=== PATIENT | female | born 1965 | race Caucasian/White ===

== ENCOUNTER 2019-07-26 13:10 | Day surgery (SDC) | payer OTHER, SELFPAY ==
[2019-07-26] VITALS (7 sets, daily range): BP systolic 99–124; BP diastolic 63–81; PULSE 58–80; RESP 10–16; TEMP 36.4–37.4; O2SAT 99–100; BMI 47.1
[2019-07-26] MEDS: SODIUM CHLORIDE 0.9% 1,000 ML 200 ML IV (14:07)
--- NOTE | 2019-07-26 14:49 | P.HP_ITS ---
History of Present Illness History of Present Illness Date Patient Seen: 07/26/19 Time Patient Seen: 14:49 Chief complaint: [id number] Narrative: This is a 54-year-old woman with history of screening colonoscopy 5 years ago during which polyps were found. This was done in [place]. The patient has not brought worsen the records to us. She said that multiple polyps were found and repeat colonoscopy was recommended in 2019. She denies any family history of colon polyps or colon cancers, and she denies any hematochezia, melena, abdominal pain, or unexplained weight loss. The patient denies any significant medical history and does not take any medications. She says she has had 2 small surgeries to remove a benign lump from her buttock and a benign lump from the back of her right arm. ROS: Thirteen system review is negative other than as mentioned below and in HPI. PE: GENERAL: Well groomed and cooperative. Appears stated age. Answers questions promptly and appropriately. Vital signs noted. HENT: Normocephalic, atraumatic. Hearing intact. Oral mucosa is pink and moist. EYES: Conjunctiva pink, sclera white, no periorbital swelling. CARDIOVASCULAR: Regular rate. No pedal edema. RESPIRATORY: Normal respiratory rate, breathing comfortably on room air. GASTROINTESTINAL: Abdomen soft and non-distended GENITALURINARY: No flank tenderness. MUSCULOSKELETAL: Equal tone and mass bilaterally. SKIN: Warm, dry, soft, appropriate color for ethnicity. No other lesions, rashes, or wounds. NEURO: Alert and Oriented X 3. No gross sensory deficits, or cognitive issues. PSYCH: Appropriate affect and mood. Patient History Medical History Abnormal colonoscopy (Acute) Family & Social History Social History: household members spouse Meds Home Medications and Allergies Home Medications Medication Instructions Recorded Confirmed Type No Known Home Medications 07/26/19 07/26/19 History Allergies Allergy/AdvReac Type Severity Reaction Status Date / Time No Known Drug Allergies Allergy Verified 07/26/19 14:03 Exam Vital Signs (past 8 hours): - 07/26/19 13:47 Temperature 99.3 F Pulse Rate 80 Respiratory Rate 16 Blood Pressure 124/81 Pulse Oximetry 99 Oxygen Delivery Method Room Air Assessment & Plan Assessment and plan (1) Patient denies medical problems: Current visit: Yes Status: Acute (2) Colon cancer screening: Current visit: Yes Status: Acute (3) History of colon polyps: Problem details: The risks and benefits of colonoscopy and possible polypectomy were discussed with the patient. The risk of bleeding and perforation were discussed. She desires to proceed with the colonoscopy procedure. Current visit: Yes Status: Acute Quality VTE Deep Vein Thrombosis/Pulmonary Embolism Present on Admission: No
--- NOTE | 2019-07-26 15:18 | SUR.OPER ---
cecum time 1516
--- NOTE | 2019-07-26 15:26 | PM.OP.ENDO ---
Operative Date/Time/Diagnoses Date of procedure: 07/26/19 Time of procedure: 15:26 Pre-op diagnosis: Personal history of colon polyps Post-op diagnosis: same Procedure & Clinicians Study performed: Surveillance colonoscopy Same procedure as scheduled: Yes Indications: Personal history of colon polyps found on initial screening colonoscopy 5 years ago Surgeon: Shalini Pacheco Procedure Notes SCOAP/Timeout: Performed Procedure in detail: The patient was brought to the room and placed in left lateral decubitus position with all bony prominences padded. A time-out was performed and then the patient was given procedural sedation starting with 4 mg of Versed and 100 mg of fentanyl. Vitals were monitored throughout the procedure and remained stable. Once adequately sedated the procedure was begun. A rectal exam was performed revealing no abnormalities. The colonoscope was then introduced to the rectum and advanced to the cecum in the usual fashion. The cecum was identified by the appendiceal orifice, the mucosal try fold, and the ileocecal valve. The scope was then retracted while rotating side to side and examining each mucosal fold. At the conclusion procedure retroflexion was performed and no hemorrhoids were seen. The scope was then withdrawn from the rectum the procedure was concluded. The patient tolerated the procedure well was transferred to the PACU in stable condition. Scope withdrawal time: 7 Sedation minutes: 31 Specimen(s): none sent Complications: none Impression: Normal colon Post-procedure Recommendations: Colonscopy in 10 years Follow up: as needed Disposition: PACU
[2019-07-26] MEDS: MIDAZOLAM 5 MG/5 ML VIAL IV (15:27)
[2019-07-26] MEDS: fentaNYL 250 MCG/5 ML INJ IV (15:28)
== END 2019-07-26 16:07 | disposition home or self-care (01) ==
LOC: ENDO 13:15
PROVIDERS: Visit Provider Surgery
PROC: 0DJD8ZZ Inspection of Lower Intestinal Tract, Via Natural or Artificial Opening Endoscopic (ICD-10-PCS; CPT 45378; principal; 2019-07-26 15:00)
DX: Z86.010 Personal history of colon polyps (principal)
CPT/HCPCS: 45378; 99152; 99153; J2250; J3010